=== PATIENT | male | born 1965 | race Caucasian/White ===

== ENCOUNTER 2017-01-10 19:21 | Emergency (ER) | payer OTHER | END 2017-01-10 23:11 | disposition home or self-care (01) | LOC: ER 19:21 | DX: S90.122A Contusion of left lesser toe(s) without damage to nail, initial encounter (principal); W20.8XXA Other cause of strike by thrown, projected or falling object, initial encounter; Y99.0 Civilian activity done for income or pay | CPT/HCPCS: 73630; 99283 ==

== ENCOUNTER 2017-01-25 18:48 | Emergency (ER) | payer OTHER | END 2017-01-25 19:25 | disposition home or self-care (01) | LOC: ER 18:48 | DX: S81.811A Laceration without foreign body, right lower leg, initial encounter (principal); W29.3XXA Contact with powered garden and outdoor hand tools and machinery, initial encounter; F17.210 Nicotine dependence, cigarettes, uncomplicated; Z88.0 Allergy status to penicillin | CPT/HCPCS: 12001; 90471; 90715; 99070; 99282-25; 99283 ==